=== PATIENT | female | born 1960 | race Caucasian/White ===

== ENCOUNTER 2020-07-27 22:01 | Emergency (ER) | payer BC ==
[~2020-07-27] VITALS: Ht 167.6 cm; Wt 68.0 kg
[2020-07-27 22:02] VITALS: BP 137/82
--- NOTE | 2020-07-27 22:02 | NUR ---
PT [place]. PER EMS PT WAS FOUND AT THE [facility] VOMITTING AND UNABLE TO AMBULATE ON HER OWN. PER PT'S PT HAD 5 DRINKS AT THE [facility]. PT RESTING IN [place] AT THIS TIME, MONITORING IN PLACE. WCTM.
[2020-07-27] MEDS ORDERED: ONDANSETRON 2MG/ML, 2ML ONE (22:09)
[2020-07-27] MEDS ORDERED: ONDANSETRON 2MG/ML, 2ML IVPush ONE (22:30)
[2020-07-27] MEDS ORDERED: PLEASE ENTER ALLERGIES MC SCH (22:30)
--- NOTE | 2020-07-27 22:57 | NUR ---
PT RESTING IN [place] AT THIS TIME, MONITORING IN PLACE. WCTM.
--- NOTE | 2020-07-28 00:21 | NUR ---
PT AMBULATES TO RESTROOM WITH . PT HAS STEADY GAIT. PT STATING "I JUST WANT TO GO HOME". PT GIVEN DISCHARGE INSTRUCTIONS AND EDUCATION. PT'S TO DRIVE PT HOME.
== END 2020-07-28 00:23 | disposition home or self-care (01) ==
LOC: ED 07-28 00:01
DX: F10.120 Alcohol abuse with intoxication, uncomplicated (principal); R11.2 Nausea with vomiting, unspecified; Y90.9 Presence of alcohol in blood, level not specified
CPT/HCPCS: 36415; 80320; 96374; 99283; J2405; G0480